=== PATIENT | female | born 1990 | race Two or more races ===

== ENCOUNTER 2023-03-26 07:48 | Inpatient (IN) ==
[2023-03-26] MEDS ORDERED: LIDOCAINE 1% LOCAL 20 ML VIAL INFIL PRN (07:52)
[2023-03-26] MEDS ORDERED: OXYTOCIN 30 UNITS/500 ML BAG IV PRN ×2 (07:52)
[2023-03-26] MEDS ORDERED: PENICILLIN G POTASSIUM 6 MU in DEXTROSE 5% 250 ML IV STA (08:06)
[2023-03-26 08:28] LABS: Hematocrit (blood only) 36.3 % (37.0-47.0); Hemoglobin 11.4 g/dl (12.0-16.0); Mean Corpuscular Hemoglobin 29.5 pg (25.0-34.0); Mean Corpuscular Hgb Conc 31.4 g/dL (32.0-36.0); Mean Corpuscular Volume 93.8 fL (80.0-100.0); Mean Platelet Volume 10.4 fL (9.4-12.4); Platelet Count 180 K/uL (130-400); RDW Coefficient of Variation 13.9 % (11.5-14.5); RDW Standard Deviation 46.8 fL (36.4-46.3); Red Blood Count 3.87 M/uL (4.20-5.40); White Blood Count 10.27 K/ul (4.8-10.8)
[2023-03-26] MEDS ORDERED: SODIUM CHLORIDE 0.9% PF INJ 10 ML VIAL ONE (09:06)
[2023-03-26] MEDS ORDERED: LIDOCAINE 2%/EPINEPHRINE 1:200,000 20 ML PF ONE (09:06)
[2023-03-26] MEDS ORDERED: ePHEDrine sulfate 50 MG/ML AMP ONE (09:06)
[2023-03-26] MEDS ORDERED: fentaNYL citrate PF 100 MCG/2 ML VIAL ONE (09:06)
[2023-03-26] MEDS ORDERED: BUPIVACAINE 0.25% PF 30 ML VIAL ONE (09:06)
[2023-03-26] MEDS ORDERED: fentaNYL 2MCG/ML ROPIVACAINE 1.25MG/ML 100 ML BAG EPI ONE (09:07)
--- NOTE | 2023-03-26 09:13 | Labor Progress Brief Note ---
Date of Service March 26, 2023 Subjective Presents for IOL without OB complaints. Miranda already fell out. Assessment & Plan (1) resulting from in vitro fertilization, antepartum: Plan: Will induce with pitocin, arom when able, epidural on request. Admission and Anticipated Discharge Date Admission Date: March 26, 2023 Physical Exam Genitourinary: / FHT Cat 1 [place] quiet Results & Data Vital Signs (Past 12 Hours) Vital Signs Temp Pulse Resp BP 03/26/23 08:06 98.4 F 20 03/26/23 08:04 88 104/63 Coding Level of Care Code None Diagnoses resulting from in vitro fertilization, antepartum O09.819
[2023-03-26] MEDS: LACTATED RINGER'S 1,000 ML IV PRN ×2 (09:18→10:25)
[2023-03-26] MEDS ORDERED: SODIUM CHLORIDE 0.9% PF INJ 10 ML VIAL EPI STA (10:13)
[2023-03-26] MEDS ORDERED: ePHEDrine sulfate 50 MG/ML AMP IV PRN (10:13)
[2023-03-26] MEDS ORDERED: SODIUM CHLORIDE 0.9% PF INJ 10 ML VIAL EPI PRN (10:13)
[2023-03-26] MEDS ORDERED: NALBUPHINE HCL INJ 10 MG/ML AMP IV PRN (10:13)
[2023-03-26] MEDS ORDERED: NALOXONE HCL 1 MG in SODIUM CHLORIDE 0.9% 1000ML 1,000 ML IV PRN (10:13)
[2023-03-26] MEDS ORDERED: NALOXONE HCL 0.4 MG/1 ML VIAL/CARP IV PRN (10:13)
[2023-03-26] MEDS ORDERED: LIDOCAINE 2%/EPINEPHRINE 1:200,000 20 ML PF EPI STA (10:13)
[2023-03-26] MEDS ORDERED: fentaNYL citrate PF 100 MCG/2 ML VIAL EPI PRN (10:13)
[2023-03-26] MEDS ORDERED: fentaNYL 2MCG/ML ROPIVACAINE 1.25MG/ML 100 ML BAG EPI PRN (10:13)
[2023-03-26] MEDS ORDERED: diphenhydrAMINE 50 MG/ML VIAL IV PRN (10:13)
[2023-03-26] MEDS ORDERED: BUPIVACAINE 0.25% PF 30 ML VIAL EPI STA (10:13)
[2023-03-26] MEDS ORDERED: fentaNYL citrate PF 100 MCG/2 ML VIAL EPI STA (10:13)
[2023-03-26] MEDS ORDERED: BUPIVACAINE 0.25% PF 30 ML VIAL EPI PRN (10:13)
[2023-03-26] MEDS ORDERED: ONDANSETRON INJ 2 MG/ML 2 ML VIAL IV PRN (10:13)
[2023-03-26] MEDS ORDERED: ROPIVACAINE 0.5% PF 5 MG/ML 20 ML VIAL EPI PRN (10:13)
[2023-03-26] MEDS ORDERED: LIDOCAINE 2% MPF LOCAL 5 ML VIAL EPI PRN (10:13)
--- NOTE | 2023-03-26 10:14 | Anesthesiology Consultation ---
Date of Service March 26, 2023 Assessment & Plan (1) Encounter for pre-operative examination: Chart Review Chart Review: Patient NOT seen in Pre Admission Testing and Acceptable Risk for Labor Epidural Consults Requested none History Height/Weight Height: 5 ft 4 in Weight: 63.503 kg Allergies Allergy/AdvReac Type Severity Reaction Status Date / Time No Known Drug Allergies Allergy Unknown Verified 03/26/23 08:27 Medications Home Medications Medication Instructions Recorded Confirmed Last Taken docosahexanoic acid [ DHA] 1 tab PO DAILY 08/18/19 03/26/23 03/25/23 18:00 ferrous fumarate 89 mg (29 mg 89 mg PO DAILY 07/01/21 03/26/23 03/25/23 18:00 iron) tablet aspirin 81 mg tablet,delayed 81 mg PO DAILY 09/23/22 03/26/23 03/25/23 18:00 release cholecalciferol (vitamin D3) 50 50 mcg PO DAILY 09/23/22 03/26/23 03/25/23 18:00 mcg (2,000 unit) capsule cyanocobalamin (vitamin B-12) 1 tab PO DAILY 09/23/22 03/26/23 03/25/23 18:00 Active Medications Generic Name Dose Route Start Last Admin Trade Name Freq PRN Reason Stop Dose Admin Oxytocin 30 units in 500 mls @ 4 mls/hr 03/26/23 07:52 03/26/23 10:00 Pitocin IV 03/28/23 07:51 0.24 units/hr .Q24H PRN 4 mls/hr Labor Induction/Augmentation Titration Protocol 0.24 UNITS/HR Lactated Ringer's 1,000 mls @ 125 mls/hr 03/26/23 07:52 03/26/23 10:26 Lr IV 03/28/23 07:51 125 mls/hr .Q8H PRN Infusion L&D Protocol Protocol Past Medical History Medical History (Updated 03/26/23 @ 10:14 by Paul Song MD) Encounter for pre-operative examination Iron deficiency anemia Vitamin D deficiency Exercise / Class Metabolic Activity II 4-5 Yardwork/Stairs/Walk up hill Past Family History Family History Father Coronary heart disease Hypertension Dyslipidemia Heart disease Mother Diabetes Grandfather (Paternal) Hypertension Heart disease Grandmother (Maternal) Ovarian cancer Other No family history of bleeding disorder Denies family history of Breast cancer Colorectal cancer Past Surgical History Surgical History History of endoscopy History of wisdom tooth extraction Past Anesthesia History No Hx of Anesthesia Complications and No Family Hx of Anesthesia Complications History of PONV No Hx of PONV and No Hx of Motion Sickness Social History Smoking Status: Never smoker Do You Dip or Chew Tobacco: No Hx Alcohol Use: No Hx Substance Use: No Physical Exam Vital Signs Last Vital Signs Temp 36.9 C 03/26/23 08:06 Pulse 93 H 03/26/23 10:51 Resp 20 03/26/23 08:06 BP 111/68 03/26/23 10:51 Pulse Ox 96 03/26/23 10:47 Testing Laboratory Results 03/26/23 08:14
[2023-03-26] MEDS ORDERED: PENICILLIN G POTASSIUM 3 MU in DEXTROSE 5% 100 ML IV PRN (12:00)
[2023-03-26] MEDS ORDERED: ACETAMINOPHEN 325 MG TAB PO PRN (17:03)
[2023-03-26] MEDS ORDERED: BENZOCAINE 20% AER SPR 82.5 GM CAN EXT PRN (17:03)
[2023-03-26] MEDS ORDERED: oxyCODONE/ACETAMINOPHEN 5mg/325mg TAB PO PRN (17:03)
[2023-03-26] MEDS ORDERED: DIPHTHERIA/TETANUS/PERTUSSIS Vaccine (Tdap, Age 7+yrs) 0.5mL SYR/VL IM ONE (17:03)
[2023-03-26] MEDS ORDERED: bisacodyL 10 MG SUPP PR PRN (17:03)
[2023-03-26] MEDS ORDERED: HYDROCORTISONE ACETATE 25 MG SUPP PR PRN (17:03)
--- NOTE | 2023-03-26 17:40 | Anesthesia Procedure Note ---
Date of Service March 26, 2023 Anesthesia Post Epidural Note Vital Signs Vital Signs: Temp Pulse Resp BP Pulse Ox 36.6 C 105 H 20 108/57 L 96 03/26/23 14:31 03/26/23 17:29 03/26/23 17:14 03/26/23 17:29 03/26/23 16:27 Notes Mental Status: alert / awake / arousable and participated in evaluation Patient Amnestic to Procedure: No Nausea / Vomiting: adequately controlled Pain: adequately controlled Airway Patency, RR, SpO2: stable & adequate BP & HR: stable & adequate Hydration State: stable & adequate Neuraxial Anesthesia: was administered and sensory block is resolving Anesthetic Complications: no major complications apparent and Pt Satisfied with anesthetic care Epidural: Removed without complications and With tip intact
[2023-03-26] MEDS: IBUPROFEN 600 MG TAB PO PRN ×2 (18:05→22:20)
[2023-03-26] MEDS: DOCUSATE SODIUM 100 MG CAP PO SCH (21:27)
[2023-03-27] MEDS: IBUPROFEN 600 MG TAB PO PRN ×5 (03:15→21:00)
--- NOTE | 2023-03-27 05:46 | Obstetrical Progress Note ---
Date of Service March 27, 2023 Assessment & Plan (1) care following vaginal delivery: Feels well today. Eating well, voiding well, ambulating well. Pain well controlled with motrin. Routine care; OOB, ambulation, continue regular diet. Plan for discharge tomorrow. After discharge will have 6 week follow-up with Dr. Landin. Subjective Pt is a 32 y/o female who is PPD#1 following at 40 1/7 weeks. Pt states that she is doing well today. She has been ambulating, voiding, and passing gas. She has been tolerating normal diet without nausea or vomiting. She states that her bleeding has been pretty minimal. Her pain is well controlled wi th prn motrin. She is breast feeding and it has been going well. She states that she would like to stay until tomorrow and be discharged then. Constitutional: no fever, no chills or no sweats Respiratory: no dyspnea Cardiovascular: no chest pain or no palpitations Breast: no breast pain Genitourinary (female): no dysuria Neurologic: no headache(s) no changes in vision, no headaches Physical Exam General: Alert, oriented. No acute distress. Cardiac: Regular rate and rhythm, no murmurs, rubs, or gallops. Respiratory: Clear to auscultation bilaterally, no wheezes/rales/rhonchi. No increased work of breathing. Symmetrical chest rise. No respiratory distress. Abdomen: Soft, nontender, nondistended. Bowel sounds present. Uterus: Uterine fundus firm, palpable below the umbilicus. Lower extremities: No lower extremity edema or swelling. No deep calf pain. Results & Data Vital Signs (Past 12 Hours) Vital Signs Temp Pulse Pulse Resp BP BP Pulse Ox 03/27/23 03:09 36.6 C 78 18 105/69 97 03/26/23 23:16 36.7 C 86 20 101/66 96 03/26/23 19:03 37 C 89 18 102/68 96 03/26/23 17:59 20 03/26/23 18:29 36.8 C 20 03/26/23 18:29 96 H 03/26/23 18:29 99/57 L 03/26/23 18:14 98 H 03/26/23 18:14 102/57 L 03/26/23 17:59 120 H 03/26/23 17:59 107/64 03/26/23 17:44 107 H 03/26/23 17:44 101/56 L O2 Del Method 03/27/23 03:09 Room Air 03/26/23 23:16 Room Air 03/26/23 19:03 Room Air 03/26/23 17:59 03/26/23 18:29 03/26/23 18:29 03/26/23 18:29 03/26/23 18:14 03/26/23 18:14 03/26/23 17:59 03/26/23 17:59 03/26/23 17:44 03/26/23 17:44 Resident Activity Tracking Resident Involvement: Resident Care Provided Care Provided: OB Delivery
[2023-03-27 06:59] LABS: Hematocrit (blood only) 30.3 % (37.0-47.0); Hemoglobin 9.8 g/dl (12.0-16.0); Mean Corpuscular Hemoglobin 29.8 pg (25.0-34.0); Mean Corpuscular Hgb Conc 32.3 g/dL (32.0-36.0); Mean Corpuscular Volume 92.1 fL (80.0-100.0); Mean Platelet Volume 10.6 fL (9.4-12.4); Platelet Count 160 K/uL (130-400); RDW Coefficient of Variation 13.9 % (11.5-14.5); RDW Standard Deviation 47.1 fL (36.4-46.3); Red Blood Count 3.29 M/uL (4.20-5.40); White Blood Count 14.18 K/ul (4.8-10.8)
[2023-03-27] MEDS: PRENATAL VITAMIN 1 TAB PO SCH (07:25)
[2023-03-27] MEDS: DOCUSATE SODIUM 100 MG CAP PO SCH ×2 (07:25→20:11)
[2023-03-27] MEDS ORDERED: bisacodyL 5 MG TABEC PO SCH (20:00)
[2023-03-28] MEDS: IBUPROFEN 600 MG TAB PO PRN ×2 (05:34→09:33)
--- NOTE | 2023-03-28 06:06 | Obstetrical Progress Note ---
Date of Service <Kalani Palma Mabel - Last Filed: 03/28/23 06:06> March 28, 2023 Assessment & Plan <Kalani Palma Mabel - Last Filed: 03/28/23 06:06> (1) care following vaginal delivery: Pt continuing to do well today. Eating well, voiding well, ambulating well. Had a BM. Pain well controlled with prn analgesics. Routine care; OOB, ambulation, continue regular diet. Plan for discharge today. After discharge will have 6 week follow-up with Dr. Landin. <Mela Brody, DO - Last Filed: 03/28/23 08:05> (1) care following vaginal delivery: Subjective <Kalani Palma Mabel DO - Last Filed: 03/28/23 06:06> Pt is a 32 y/o female who is PPD#2 following at 40 1/7 weeks. Pt had a 4th degree laceration during delivery. Pt states that she feels well today. She has been ambulating, voiding, passing gas, and eating without issues. She states she had a bowel movement this morning. No difficulty noted with defecating. She has been tolerating regular diet. She states she really only bleeds when . She also states she is not having any pain at the moment and feels well. She is hoping to be able to go home today. Constitutional: no fever, no chills or no sweats Respiratory: no dyspnea Cardiovascular: no chest pain or no palpitations Breast: no breast pain Genitourinary (female): no dysuria Neurologic: no headache(s) no changes in vision, no headaches Physical Exam <Kalani Minerva Monroe - Last Filed: 03/28/23 06:06> General: Alert, oriented. No acute distress. Cardiac: Regular rate and rhythm, no murmurs, rubs, or gallops. Respiratory: Clear to auscultation bilaterally, no wheezes/rales/rhonchi. Abdomen: Soft, nontender, nondistended. Bowel sounds present. Uterus: Uterine fundus firm, palpable below the umbilicus. Lower extremities: No lower extremity edema or swelling. No deep calf pain. Results & Data <Kalanikaleb Monroe - Last Filed: 03/28/23 06:06> Vital Signs (Past 12 Hours) Vital Signs Temp Pulse Resp BP Pulse Ox O2 Del Method 03/28/23 05:40 105/71 03/27/23 23:00 36.4 C L 87 16 85/54 L Room Air 03/27/23 20:45 36.6 C 89 20 112/78 98 Room Air <Mela Brody, - Last Filed: 03/28/23 08:05> Co-Signing Physician Notes Resident Physician Supervision Note: I was present with Dr. Monroe during the history and exam. I discussed the case with the resident and agree with the findings and plan as documented in the note. Any exceptions or clarifications are listed here: PPD#2 doing well, no concerns. Doing well with bowel movements - discussed bowel regimen. DC instructions reviewed, followup 6w PP Documented By: Mela Brody DO Resident Activity Tracking <Kalani Monroe, - Last Filed: 03/28/23 06:06> Resident Involvement: Resident Care Provided Care Provided: OB Delivery
[2023-03-28 07:27] LABS: Hematocrit (blood only) 29.7 % (37.0-47.0); Hemoglobin 9.5 g/dl (12.0-16.0)
[2023-03-28] MEDS: PRENATAL VITAMIN 1 TAB PO SCH (09:32)
[2023-03-28] MEDS: DOCUSATE SODIUM 100 MG CAP PO SCH (09:33)
--- NOTE | 2023-04-02 14:55 | Delivery Summary ---
Vaginal Delivery Summary Date of Service March 26, 2023 Vaginal Delivery Summary DIAGNOSES: 1. Sanz intrauterine at term. 2. Induction of Labor. 3. Group B Streptococcus Neg. PROCEDURE: Spontaneous vaginal delivery and repair of fourth degree laceration. SURGEON: Zahra Landin MD. SYSTEMS OPERATOR: None. ESTIMATED BLOOD LOSS: 600 mL. COMPLICATIONS: None. PLACENTA: Spontaneous and intact with a 3-vessel cord. DISPOSITION: Stable to labor and delivery. DESCRIPTION: The patient pushed well and brought the head to in OA position. The infant's head was allowed to deliver with contraction force and no further active pushing, with the perineum protected during this time. A compound presentation was noted, such that the right shoulder of the infant was anterior, and the right hand delivered alongside the left cheek, "punching" through the perineum/anus/rectum as it did so. The infant was vigorous and moving all extremities, and making respiratory efforts. The cord was doubly clamped by the MD and then cut by the FOB. The placenta delivered spontaneously and was noted to be intact and with a 3VC. The cervix, vagina and perineum were examined and were found to have a fourth degree laceration with approximate 1.5cm of rectal disruption. The rectum was repaired to the level of the anus. The anal sphincter was then reapproximated with anterior and posterior figure of eight sutures of 0 vicryl. The remaining laceration was closed using vicryl suture in the manner typical for a second degree laceration, beginning at the posterior vaginal laceration's apex down to the perineum, and then rebuilding the perineal body with several crown sutures, ultimately closing the perineal skin neatly from the anal verge back to the fourchette in a subcuticular manner. After repair, a rectal exam was performed and showed an intact rectovaginal septum without any remaining rectal defect. The fundus was firm and lochia minimal immediately after delivery. [facility] Vaginal Delivery Charge Vaginal Delivery Codes: 07545 global code for the antepartum, delivery, and post-
== END 2023-03-28 11:00 | disposition home or self-care (01) | DRG 768 ==
LOC: 4S1 07:48 → 4E2 19:12
DX: Z3A.40 40 weeks gestation of pregnancy; Z37.0 Single live birth; O48.0 Post-term pregnancy; Z79.82 Long term (current) use of aspirin; O70.3 Fourth degree perineal laceration during delivery